=== PATIENT | female | born 1945 | race Caucasian/White ===

== ENCOUNTER 2016-09-30 03:55 | Emergency (ER) | payer MEDICARE, OTHER ==
[2016-09-30] MEDS ORDERED: Ondansetron 4 MG/2 ML SDV IVPUSH ONE ×2 (04:24→08:35)
[2016-09-30] MEDS ORDERED: Sodium Chloride 0.9% 1,000 ML IV SCH (04:30)
--- NOTE | 2016-09-30 05:09 | EDM.PDOC ---
ED HPI GENERAL MEDICAL PROBLEM - General Chief Complaint: Gastrointestinal Problem Stated Complaint: [facility] Time Seen by Provider: 09/30/16 04:04 Source of Information: Reports: Patient, RN notes reviewed, Significant Other ( Boyfriend) History Limitations: Reports: Uncooperative (The patient answers "I don't know" to most questions of about her history, with no apparent attempt to provide information) - History of Present Illness INITIAL COMMENTS - FREE TEXT/NARRATIVE: The patient states that she ate cereal around midnight, then woke up, perhaps around 01:00, diaphoretic with epigastric pain. She drank some Maalox, and went back to bed. She woke again, perhaps around 02:30, again with diaphoresis and epigastric pain. She vomited, which relieved her epigastric pain. She denies chest pain, dyspnea, or a sense of impending doom. The patient is concerned, because she suffered a AL in December 2015, and is concerned that this may be another heart attack. When asked how she presented at that time, she states "I don't know". Medical records acquired from [facility] indicate that the patient had a headache and neck pain for 3-4 days prior to arrival to our ED on 2015. She did not have any chest pain or dyspnea. She reported that her legs have been "wobbly". She was found to be in complete heart block, and her troponin was elevated. She was taken emergently to the cardiac catheter lab, where she was found to have a 100% RCA lesion, which was stented the following day, 01/03/2016. She was also found to have LAD disease, which was not stented. A pacemaker was placed on 01/04/2016 due to the complete heart block. The patient is a committed smoker, and resides with a smoker. - Related Data Allergies Allergy/AdvReac Type Severity Reaction Status Date / Time Sulfa (Sulfonamide Allergy Anaphylactic Verified 09/30/16 04:00 Antibiotics) Shock Home Meds: Home Meds Carvedilol [Carvedilol] 09/30/16 [History] Clopidogrel [Plavix] 09/30/16 [History] Lisinopril [Prinivil] 09/30/16 [History] atorvaSTATin [Lipitor] 09/30/16 [History] Past Medical History Cardiovascular History: Reports: Aneurysm (AAA 2000), CAD, High cholesterol, Hypertension, AL Genitourinary History: Reports: Urinary incontinence Endocrine/Metabolic History: Reports: Obesity/BMI 30+ Oncologic (Cancer) History: Reports: Other (see below) (Parathyroid gland) - Past Surgical History Cardiovascular Surgical History: Reports: AAA repair (2000), Coronary artery stent (x 1 to the RCA 01/03/2016), Pacer (dual-chamber, 01/04/2016) Female Surgical History: Reports: section (x 1), Hysterectomy, Salpingo-oophorectomy Endocrine Surgical History: Reports: Parathyroidectomy (partial) Social & Family History - Family History Family Medical History: Noncontributory - Tobacco Use Smoking Status *Q: Current Every Day Smoker Years of Tobacco use: 56 Packs/Tins Daily: 0.5 Packs/Tins Daily Comment: down from 1 ppd Second Hand Smoke Exposure: Yes - Alcohol Use Alcohol Use History: Yes Alcohol Use Frequency: Rarely - Recreational Drug Use Recreational Drug Use: No - Living Situation & Occupation Living situation: Reports: , with significant other (Boyfriend) ED ROS GENERAL - Review of Systems Review Of Systems: See Below Constitutional: Reports: other ("tired" recently) HEENT: Reports: No symptoms Respiratory: Reports: No Symptoms Cardiovascular: Reports: No symptoms Endocrine: Reports: no symptoms GI/Abdominal: Reports: No symptoms : Reports: no symptoms Musculoskeletal: Reports: no symptoms Skin: Reports: no symptoms Neurological: Reports: No Symptoms Psychiatric: Reports: No symptoms Hematologic/Lymphatic: Reports: no symptoms Immunologic: Reports: no symptoms ED EXAM, GENERAL - Physical Exam Exam: See Below Exam Limited By: No limitations General Appearance: alert, WD/WN, no apparent distress Eye Exam: bilateral eye: EOMI, normal inspection Ears: normal external exam, hearing grossly normal Ear Exam: bilateral ear: auricle normal Nose: normal inspection, no blood Throat/Mouth: Normal inspection, Normal lips, Normal voice, No airway compromise Head: atraumatic, normocephalic Neck: normal inspection, full range of motion Respiratory/Chest: no respiratory distress, lungs clear, normal breath sounds, no accessory muscle use Cardiovascular: normal peripheral pulses, regular rate, rhythm, no gallop, no JVD, no murmur, no rub Peripheral Pulses: 4+: radial (L), radial (R) GI/Abdominal: normal bowel sounds, soft, no organomegaly, no distention, no abnormal bruit, no mass, tender (Mild epigastric only. Nontender elsewhere.), other (Obese) (Female) Exam: Deferred Rectal (Female) Exam: Deferred Back Exam: normal inspection, full range of motion, NT Extremities: normal inspection, normal range of motion, no pedal edema, normal capillary refill Neurological: alert, oriented, normal cognition, no motor/sensory deficits Psychiatric: normal affect Skin Exam: Warm, Dry, Intact, Normal color, No rash Lymphatic: no adenopathy EKG INTERPRETATION EKG Date: 09/30/16 Time: 04:00 Rhythm: NSR Rate (beats/min): 76 [place]: normal P-wave: present QRS: normal ST-T: normal QT: normal Comparison: change from previous EKG (01/02/2016 - was in 3rd degree heart block) Course - Vital Signs Last Recorded V/S: Last Vital Signs Temp 36.9 C 09/30/16 04:00 Pulse 75 09/30/16 04:00 Resp 18 09/30/16 04:00 BP 133/63 09/30/16 04:00 Pulse Ox 89 L 09/30/16 05:23 - Orders/Labs/Meds Orders: Active Orders 24 hr Category Date Time Status EKG 12 Lead [EKG Documentation Completion] [RC] STAT Care 09/30/16 04:11 Active Ang Chest [CT] Stat Exams 09/30/16 05:14 Stop Req Ang Chest [CT] Stat Exams 09/30/16 05:14 Taken Chest 2V [CR] Stat Exams 09/30/16 04:20 Taken Sodium Chloride 0.9% [Normal Saline] 1,000 ml Med 09/30/16 04:30 Active IV ASDIRECTED Sodium Chloride 0.9% [Normal Saline] 100 ml Med 09/30/16 05:45 Active IV ASDIRECTED Sodium Chloride 0.9% [Saline Flush] Med 09/30/16 05:44 Active 10 ml FLUSH ONETIME PRN Medication Orders Sodium Chloride (Normal Saline) 1,000 mls @ 100 mls/hr IV ASDIRECTED CJ Last Admin: 09/30/16 04:53 Dose: 100 mls/hr Sodium Chloride (Normal Saline) 100 mls @ 80 mls/hr IV ASDIRECTED CJ Last Admin: 09/30/16 06:26 Dose: 80 mls/hr Sodium Chloride (Saline Flush) 10 ml FLUSH ONETIME PRN PRN Reason: IV FLUSH Last Admin: 09/30/16 06:26 Dose: 10 ml Labs: Laboratory Tests 09/30/16 09/30/16 09/30/16 Range/Units 04:32 04:32 04:32 WBC 10.74 H (3.98-10.04) K/mm3 RBC 4.87 (3.98-5.22) M/mm3 Hgb 15.4 (11.2-15.7) gm/L Hct 46.3 H (34.1-44.9) % MCV 95.1 H (79.4-94.8) fl MCH 31.6 (25.6-32.2) pg MCHC 33.3 (32.2-35.5) g/dl RDW Std Deviation 44.2 (36.4-46.3) fL Plt Count 150 L (182-369) K/mm3 MPV 10.1 (9.4-12.3) fl Neutrophils % (Manual) 71 H (40-60) % Band Neutrophils % 2 (0-10) % Lymphocytes % (Manual) 20 (20-40) % Atypical Lymphs % 0 % Monocytes % (Manual) 4 (2-10) % Eosinophils % (Manual) 2 (0.7-5.8) % Basophils % (Manual) 1 (0.1-1.2) Platelet Estimate Adequate RBC Morph Comment Normal PT 10.7 (8.0-13.0) SECONDS INR 0.98 APTT 23 (22-36) SECONDS D-Dimer, Quantitative 2.45 H (0.19-0.59) mg/L Sodium 145 (136-145) mEq/L Potassium 3.8 (3.5-5.1) mEq/L Chloride 107 (98-107) mEq/L Carbon Dioxide 26 (21-32) mEq/L Anion Gap 15.8 H (5-15) BUN 14 (7-18) mg/dL Creatinine 0.8 (0.55-1.02) mg/dL Est Cr Clr Drug Dosing TNP Estimated GFR (MDRD) > 60 (>60) mL/min BUN/Creatinine Ratio 17.5 (14-18) Glucose 125 H (80-115) mg/dL Calcium 9.2 (8.5-10.1) mg/dL Total Bilirubin 0.7 (0.2-1.0) mg/dL AST 18 (15-37) U/L ALT 22 (14-59) U/L Alkaline Phosphatase 92 (46-116) U/L Troponin I < 0.017 (0.00-0.056) ng/mL B-Natriuretic Peptide (0-100) pg/mL Total Protein 6.8 (6.4-8.2) g/dl Albumin 3.6 (3.4-5.0) g/dl Globulin 3.2 gm/dL Albumin/Globulin Ratio 1.1 (1-2) Lipase 109 (73-393) U/L 09/30/16 Range/Units 04:32 WBC (3.98-10.04) K/mm3 RBC (3.98-5.22) M/mm3 Hgb (11.2-15.7) gm/L Hct (34.1-44.9) % MCV (79.4-94.8) fl MCH (25.6-32.2) pg MCHC (32.2-35.5) g/dl RDW Std Deviation (36.4-46.3) fL Plt Count (182-369) K/mm3 MPV (9.4-12.3) fl Neutrophils % (Manual) (40-60) % Band Neutrophils % (0-10) % Lymphocytes % (Manual) (20-40) % Atypical Lymphs % % Monocytes % (Manual) (2-10) % Eosinophils % (Manual) (0.7-5.8) % Basophils % (Manual) (0.1-1.2) Platelet Estimate RBC Morph Comment PT (8.0-13.0) SECONDS INR APTT (22-36) SECONDS D-Dimer, Quantitative (0.19-0.59) mg/L Sodium (136-145) mEq/L Potassium (3.5-5.1) mEq/L Chloride (98-107) mEq/L Carbon Dioxide (21-32) mEq/L Anion Gap (5-15) BUN (7-18) mg/dL Creatinine (0.55-1.02) mg/dL Est Cr Clr Drug Dosing Estimated GFR (MDRD) (>60) mL/min BUN/Creatinine Ratio (14-18) Glucose (80-115) mg/dL Calcium (8.5-10.1) mg/dL Total Bilirubin (0.2-1.0) mg/dL AST (15-37) U/L ALT (14-59) U/L Alkaline Phosphatase (46-116) U/L Troponin I (0.00-0.056) ng/mL B-Natriuretic Peptide 77 (0-100) pg/mL Total Protein (6.4-8.2) g/dl Albumin (3.4-5.0) g/dl Globulin gm/dL Albumin/Globulin Ratio (1-2) Lipase (73-393) U/L Meds: Medications Generic Name Dose Route Start Last Admin Trade Name Freq PRN Reason Stop Dose Admin Sodium Chloride 1,000 mls @ 100 mls/hr 09/30/16 04:30 09/30/16 04:53 Normal Saline IV 100 mls/hr ASDIRECTED CJ Administration Sodium Chloride 100 mls @ 80 mls/hr 09/30/16 05:45 09/30/16 06:26 Normal Saline IV 80 mls/hr ASDIRECTED CJ Administration Sodium Chloride 10 ml 09/30/16 05:44 09/30/16 06:26 Saline Flush FLUSH 10 ml ONETIME PRN Administration IV FLUSH Discontinued Medications Generic Name Dose Route Start Last Admin Trade Name Freq PRN Reason Stop Dose Admin Iopamidol 100 ml 09/30/16 05:44 09/30/16 06:26 Isovue-370 (76%) IVPUSH 09/30/16 05:45 100 ml ONETIME ONE Administration Ondansetron HCl 4 mg 09/30/16 04:24 09/30/16 04:53 Zofran IVPUSH 09/30/16 04:25 4 mg ONETIME ONE Administration - Radiology Interpretation Free Text/Narrative:: Two-view chest radiograph reviewed. Cardiac silhouette is within normal limits , however, there appears to be an intrathoracic aneurysm of the descending aorta , seen on the lateral view. No pulmonary vascular congestion. No pleural effusions. No focal infiltrate. No pneumothorax. A 2-chamber left-sided pacemaker is noted. Comparison is made with an AP portable chest radiograph dated 01/02/2016 - no prior lateral radiograph to compare. Formal read per the Radiologist pending. CT angiogram of the chest is read by [facility] as: 1. Unruptured a descending aortic aneurysm 4 x 3.8 cm. 2. No evidence of pulmonary embolus to the segmental level. 3. Large atherosclerotic plaques in the descending thoracic aorta. 4. No aortic dissection. 5. 8.6 mm pulmonary nodule in the posterior aspect of the right upper lobe. 5.3 mm pulmonary nodule in the left apex. A 0.5 mm pulmonary nodule in the lingula. 6. Opacities in the lower lobes may represent atelectasis or pneumonia. - Re-Assessments/Exams Free Text/Narrative Re-Assessment/Exam: 09/30/16 05:14 The patient's D-dimer has returned substantially elevated at 2.45, and there appears to be a descending thoracic aortic aneurysm on the lateral chest radiograph, age indeterminate, as there are no prior lateral chest radiographs to compare. The patient reports repair of an aortic aneurysm about 10 years ago , but indicates that it was in her abdomen, not her thorax. I have ordered a CT angiogram of the chest to rule out PE and evaluate the aneurism. 09/30/16 07:[address] Benitez, [facility], at 07:02. She did not mention the descending aortic dilatation in her report, because it is under 5 cm in diameter and is therefore not large enough to qualify as an aneurism. 09/30/16 07:27 Test results discussed with the patient. Today's workup demonstrates an ascending aortic aneurism and a descending aortic dilatation, but is otherwise unremarkable. These will need to be followed. The importance of the patient quitting smoking was emphasized. The cause of the patient's epigastric pain, nausea, and emesis is unclear. I recommended to the patient that if her symptoms recur, that she return to the ED for re-evaluation. Departure - Departure Time of Disposition: 07:29 Disposition: Home, Self-Care 01 Condition: good Clinical Impression: Epigastric abdominal pain of unknown etiology, Nausea & vomiting, Ascending aortic aneurysm, Dilation of descending aorta Referrals: Anna Marie Marion NP [Ordering Only Provider] - Forms: ED Department Discharge Additional Instructions: You were seen in the emergency room for upper abdominal pain, nausea, and vomiting this morning. Workup in the ER included blood work, an ECG, a chest x-ray, and a CT angiogram of your chest. Your workup shows that you have and ascending aortic aneurysm, and a descending aortic dilatation. The remainder of your workup was unremarkable. These aortic abnormalities will need to be followed, especially given your history. Followup with your PCP, Anna Marie Marion, in this regard. The cause of your upper abdominal pain and vomiting is unclear - it is possible that you ate something that disagreed with you. We STRONGLY recommend that you quit smoking. If your symptoms recur, or for other concerns, please do not hesitate to return to the ER. - My Orders Last 24 Hours: My Active Orders 09/30/16 04:11 EKG 12 Lead [EKG Documentation Completion] [RC] STAT 09/30/16 04:20 Chest 2V [CR] Stat 09/30/16 04:30 Sodium Chloride 0.9% [Normal Saline] 1,000 ml IV ASDIRECTED 09/30/16 05:14 Ang Chest [CT] Stat Ang Chest [CT] Stat 09/30/16 05:44 Sodium Chloride 0.9% [Saline Flush] 10 ml FLUSH ONETIME PRN 09/30/16 05:45 Sodium Chloride 0.9% [Normal Saline] 100 ml IV ASDIRECTED - Assessment/Plan Last 24 Hours: My Active Orders 09/30/16 04:11 EKG 12 Lead [EKG Documentation Completion] [RC] STAT 09/30/16 04:20 Chest 2V [CR] Stat 09/30/16 04:30 Sodium Chloride 0.9% [Normal Saline] 1,000 ml IV ASDIRECTED 09/30/16 05:14 Ang Chest [CT] Stat Ang Chest [CT] Stat 09/30/16 05:44 Sodium Chloride 0.9% [Saline Flush] 10 ml FLUSH ONETIME PRN 09/30/16 05:45 Sodium Chloride 0.9% [Normal Saline] 100 ml IV ASDIRECTED
[2016-09-30] MEDS ORDERED: Sodium Chloride 0.9% 10 ML Syringe FLUSH PRN (05:44)
[2016-09-30] MEDS ORDERED: Iopamidol 755 Mg/ML 100 ML Bottle IVPUSH ONE (05:44)
[2016-09-30] MEDS ORDERED: Sodium Chloride 0.9% 100 ML IV SCH (05:45)
[2016-09-30] MEDS ORDERED: Alum Hydrox/Mag Hydrox/Simeth 30 ML, Lidocaine 2% 15 ML PO STA ×2 (08:18)
[2016-09-30] MEDS ORDERED: Ondansetron 4 MG/2 ML SDV ONE (08:31)
[2016-09-30 08:33] VITALS: BP 158/99
[2016-09-30] MEDS ORDERED: Famotidine 20 MG/2 ML SDV IVPUSH ONE (08:39)
[2016-09-30] MEDS ORDERED: HYDROmorphone 1 MG/ML Syringe IVPUSH ONE (08:40)
--- NOTE | 2016-09-30 16:18 | CR ---
Chest: Two views of the chest were obtained. Comparison: Previous chest x-ray of 01/02/16 is available. Heart size slightly enlarged with left ventricular configuration. Tortuous thoracic aorta is seen. Pacemaker is noted. Scattered nodules are seen within the chest. Right upper lobe nodule is equivocally present on prior exam but findings have increased in prominence. Surgical clips are seen at the base of the neck. Bony structure show degenerative changes within the spine with mild scoliosis. Impression: 1. Increasing nodules within both sides of the chest. Difficult to exclude metastatic disease at this time. 2. Other incidental findings. Diagnostic code #9
--- NOTE | 2016-09-30 16:18 | CT ---
CT chest Technique: Multiple axial sections were obtained through the chest. Intravenous contrast was utilized. Study has been performed as a pulmonary angiogram protocol. Comparison: Previous chest x-rays are available, no previous chest CTs available. Findings: Pulmonary arteries are well-opacified. No filling defects are seen to indicate pulmonary embolism. Coronary artery calcification is noted. Diffuse atherosclerotic plaque is seen within the thoracic aorta and upper abdominal aorta. Ascending aorta is 4.0 cm which is slightly aneurysmal. Descending aorta measures about 3.3 cm at the same level. Mediastinum and hilar regions show no adenopathy or mass. Several lymph nodes seen within the mediastinum which at this time are likely incidental. Heart size is mildly enlarged. Several low density lesions are seen within the liver which most likely represent cysts. Nodule identified within the right upper lung measuring 9 mm. Small nodule noted within the left upper lung measuring 6 mm. Third nodule identified within the left base measuring 1 cm. These do not appear calcified. Increased density identified within both lung bases most likely due to atelectasis. Impression: 1. Mild ascending aortic aneurysm. Aorta contains diffuse plaque. 2. No findings of pulmonary embolism. 3. Three nodules within the chest. These contain no calcifications and are nonspecific. Findings could represent noncalcified granulomas or metastatic disease. Please correlate if patient has any known malignancy. If no clinical history helps to determine etiology of the nodules, follow-up noncontrast chest CT could be considered in 6 months to confirm stability. 4. Small abnormalities within the liver most likely representing cysts.. Diagnostic code #9 Agree with preliminary report issued by [facility] (preliminary [facility] report dictated on 09/30/16, 7:33 AM Central Time)
== END 2016-09-30 09:50 | disposition home or self-care (01) ==
LOC: JD.ED 03:55
DX: R10.13 Epigastric pain (principal); K56.60 Unspecified intestinal obstruction; R11.2 Nausea with vomiting, unspecified; I71.4 Abdominal aortic aneurysm, without rupture; I77.819 Aortic ectasia, unspecified site; Z88.2 Allergy status to sulfonamides; Z79.899 Other long term (current) drug therapy; I25.10 Atherosclerotic heart disease of native coronary artery without angina pectoris; I10 Essential (primary) hypertension; Z95.5 Presence of coronary angioplasty implant and graft; F17.200 Nicotine dependence, unspecified, uncomplicated; E78.00 Pure hypercholesterolemia, unspecified; I25.2 Old myocardial infarction; E66.9 Obesity, unspecified; Z68.30 Body mass index [BMI] 30.0-30.9, adult; R32 Unspecified urinary incontinence; Z95.0 Presence of cardiac pacemaker; R06.02 Shortness of breath
CPT/HCPCS: 36415; 71020; 71275; 74177; 80053; 81001; 82553; 82977; 83690; 83880; 84443; 84484; 85025; 85379; 85610; 85730; 86140; 93005; 96361; 96374; 96375; 96376; 99285; A9270; J1170; J2405; J7030; J7040; J7050; Q9963; Q9967; 99284

== ENCOUNTER 2016-09-30 18:15 | Emergency (ER) | payer MEDICARE, SELFPAY ==
[2016-09-30] MEDS ORDERED: Sodium Chloride 0.9% 10 ML Syringe FLUSH PRN ×2 (18:28→19:11)
[2016-09-30] MEDS ORDERED: Ondansetron 4 MG/2 ML SDV IVPUSH ONE (18:28)
[2016-09-30] MEDS ORDERED: HYDROmorphone 0.5 MG/0.5 ML Syringe IVPUSH ONE (18:31)
--- NOTE | 2016-09-30 18:33 | EDM.PDOC ---
ED HPI GI/ABDOMINAL - General Chief Complaint: Abdominal Pain Stated Complaint: [facility] Time Seen by Provider: 09/30/16 18:22 Source of Information: Reports: Patient, Old records (ER visit from earlier today) History Limitations: Reports: No limitations - History of Present Illness INITIAL COMMENTS - FREE TEXT/NARRATIVE: Patient presents via the [facility] for evaluation and treatment of LUQ abdominal pain, nausea, vomiting and bloating. Patient was in out ER this morning for the same problem. She had a complete cardiac work-up which was negative. She was sent home. She state throughout the day the nausea, vomiting and abdominal pain has worsened. Current symptosm include LUQ abdominal pain, nausea, vomiting, chills, bloating and diaphoresis. Reports a fever but has not taken her temp. Denies any diarrhea, headaches, urinary symptoms. Previous surgeries include a AAA repair at the [facility] in 2000 and a total hysterectomy done in [place]. Patient is a poor historian and is not very forthcoming with information. - Related Data Allergies/ADRs: Allergies Allergy/AdvReac Type Severity Reaction Status Date / Time Sulfa (Sulfonamide Allergy Anaphylactic Verified 09/30/16 18:28 Antibiotics) Shock Home Meds: Home Meds Carvedilol [Carvedilol] 09/30/16 [History] Clopidogrel [Plavix] 09/30/16 [History] Lisinopril [Prinivil] 09/30/16 [History] atorvaSTATin [Lipitor] 09/30/16 [History] Past Medical History Cardiovascular History: Reports: Aneurysm, CAD, High cholesterol, Hypertension, RI Genitourinary History: Reports: Urinary incontinence Endocrine/Metabolic History: Reports: Obesity/BMI 30+ Oncologic (Cancer) History: Reports: Uterine - Past Surgical History Cardiovascular Surgical History: Reports: AAA repair, Coronary artery stent, Pacer Female Surgical History: Reports: section, Hysterectomy, Salpingo- oophorectomy Endocrine Surgical History: Reports: Parathyroidectomy Social & Family History - Family History Family Medical History: Noncontributory - Tobacco Use Smoking Status *Q: Current Every Day Smoker Years of Tobacco use: 56 Packs/Tins Daily: 0.5 Second Hand Smoke Exposure: Yes - Recreational Drug Use Recreational Drug Use: No - Living Situation & Occupation Living situation: Reports: , with significant other (Boyfriend) ED ROS GENERAL - Review of Systems Review Of Systems: See Below Constitutional: Reports: malaise, decreased appetite GI/Abdominal: Reports: Abdominal pain, Distension, Nausea, Vomiting. Denies: Diarrhea : Reports: no symptoms Neurological: Denies: Headache ED EXAM, GI/ABD - Physical Exam Exam: See Below Exam Limited By: No limitations General Appearance: alert, WD/WN, no apparent distress, obese Respiratory/Chest: no respiratory distress, lungs clear, normal breath sounds Cardiovascular: normal peripheral pulses, regular rate, rhythm, no murmur GI/Abdominal: absent bowel sounds, tenderness (diffuse: greatest in the LUQ), distention, guarding Neurological: alert, oriented, normal cognition Psychiatric: normal affect, normal mood Skin Exam: Warm, Dry, Normal color EKG INTERPRETATION EKG Date: 09/30/16 Time: 18:35 Rhythm: NSR Rate (beats/min): 85 [place]: normal P-wave: present QRS: normal ST-T: normal QT: normal EKG Interpretation Comments: Sinus rhythm at [address] depression inV4 and V5. Q waves in II, II and AVF - old inferior wall RI. Reviewed by myself and Dr. Rojas Course - Vital Signs Last Recorded V/S: Last Vital Signs Temp 36.3 C 09/30/16 18:23 Pulse 90 09/30/16 20:37 Resp 16 09/30/16 20:37 BP 125/52 L 09/30/16 20:37 Pulse Ox 94 L 09/30/16 20:37 - Orders/Labs/Meds Orders: Active Orders 24 hr Category Date Time Status Cardiac Monitoring [RC] . DIRECTED Care 09/30/16 18:31 Active EKG Documentation Completion [RC] STAT Care 09/30/16 18:28 Active Peripheral IV Care [RC] . DIRECTED Care 09/30/16 18:29 Active Nothing Per Oral Diet [DIET] Diet 09/30/16 Breakfast Active Abdomen Pelvis w Cont [CT] Stat Exams 09/30/16 18:28 Taken UA W/MICROSCOPIC [URIN] Stat Lab 09/30/16 18:30 Uncollected Sodium Chloride 0.9% [Normal Saline] 1,000 ml Med 09/30/16 20:47 Active IV ONETIME Sodium Chloride 0.9% [Saline Flush] Med 09/30/16 18:28 Active 10 ml FLUSH ASDIRECTED PRN Sodium Chloride 0.9% [Saline Flush] Med 09/30/16 19:11 Active 10 ml FLUSH ONETIME PRN Nasogastric Orogastric Tube Insertion [OM.PC] Routine Oth 09/30/16 20:47 Ordered Peripheral IV Insertion Adult [OM.PC] Routine Oth 09/30/16 18:27 Ordered Medication Orders Sodium Chloride (Normal Saline) 1,000 mls @ 100 mls/hr IV ONETIME ONE Stop: 10/01/16 06:46 Last Admin: 09/30/16 21:06 Dose: 100 mls/hr Sodium Chloride (Saline Flush) 10 ml FLUSH ASDIRECTED PRN PRN Reason: Keep Vein Open Last Admin: 09/30/16 18:36 Dose: 10 ml Sodium Chloride (Saline Flush) 10 ml FLUSH ONETIME PRN PRN Reason: IV FLUSH Last Admin: 09/30/16 20:14 Dose: 10 ml Labs: Laboratory Tests 09/30/16 09/30/16 09/30/16 Range/Units 18:30 18:30 18:30 WBC 12.46 H (3.98-10.04) K/mm3 RBC 5.23 H (3.98-5.22) M/mm3 Hgb 16.5 H (11.2-15.7) gm/L Hct 50.4 H (34.1-44.9) % MCV 96.4 H (79.4-94.8) fl MCH 31.5 (25.6-32.2) pg MCHC 32.7 (32.2-35.5) g/dl RDW Std Deviation 46.4 H (36.4-46.3) fL Plt Count 164 L (182-369) K/mm3 MPV 10.0 (9.4-12.3) fl Neut % (Auto) 86.4 H (34.0-71.1) % Lymph % (Auto) 5.6 L (19.3-51.7) % [place] % (Auto) 6.7 (4.7-12.5) % Eos % (Auto) 0.7 (0.7-5.8) Baso % (Auto) 0.4 (0.1-1.2) % Neut # (Auto) 10.77 H (1.56-6.13) K/mm3 Lymph # (Auto) 0.70 L (1.18-3.74) K/mm3 [place] # (Auto) 0.83 H (0.24-0.36) K/mm3 Eos # (Auto) 0.09 (0.04-0.36) K/mm3 Baso # (Auto) 0.05 (0.01-0.08) K/mm3 Manual Slide Review Abnormal smear Sodium 142 (136-145) mEq/L Potassium 4.4 (3.5-5.1) mEq/L Chloride 105 (98-107) mEq/L Carbon Dioxide 29 (21-32) mEq/L Anion Gap 12.4 (5-15) BUN 17 (7-18) mg/dL Creatinine 1.1 H (0.55-1.02) mg/dL Est Cr Clr Drug Dosing 39.91 mL/min Estimated GFR (MDRD) 49 (>60) mL/min BUN/Creatinine Ratio 15.5 (14-18) Glucose 161 H (80-115) mg/dL Calcium 9.2 (8.5-10.1) mg/dL Total Bilirubin 0.6 (0.2-1.0) mg/dL GGT 23 (5-55) U/L AST 21 (15-37) U/L ALT 23 (14-59) U/L Alkaline Phosphatase 103 (46-116) U/L CK-MB (CK-2) 2.7 (0-3.6) ng/ml Troponin I < 0.017 (0.00-0.056) ng/mL C-Reactive Protein 0.8 (<1.0) mg/dL Total Protein 7.5 (6.4-8.2) g/dl Albumin 3.9 (3.4-5.0) g/dl Globulin 3.6 gm/dL Albumin/Globulin Ratio 1.1 (1-2) Lipase 98 (73-393) U/L TSH 3rd Generation 0.303 L (0.358-3.74) uIU/mL Meds: Medications Generic Name Dose Route Start Last Admin Trade Name Freq PRN Reason Stop Dose Admin Sodium Chloride 1,000 mls @ 100 mls/hr 09/30/16 20:47 09/30/16 21:06 Normal Saline IV 10/01/16 06:46 100 mls/hr ONETIME ONE Administration Sodium Chloride 10 ml 09/30/16 18:28 09/30/16 18:36 Saline Flush FLUSH 10 ml ASDIRECTED PRN Administration Keep Vein Open Sodium Chloride 10 ml 09/30/16 19:11 09/30/16 20:14 Saline Flush FLUSH 10 ml ONETIME PRN Administration IV FLUSH Discontinued Medications Generic Name Dose Route Start Last Admin Trade Name Maicol PRN Reason Stop Dose Admin Diatrizoate Meglum/Diatrizoate Sod 120 ml 09/30/16 19:11 09/30/16 20:14 Gastrografin 37% PO 09/30/16 19:12 90 ml ONETIME ONE Administration Hydromorphone HCl 0.5 mg 09/30/16 18:31 09/30/16 18:36 Dilaudid IVPUSH 09/30/16 18:32 0.5 mg ONETIME ONE Administration Iopamidol 100 ml 09/30/16 19:11 09/30/16 20:14 Isovue-300 (61%) IVPUSH 09/30/16 19:12 80 ml ONETIME ONE Administration Lidocaine HCl Confirm 09/30/16 20:51 09/30/16 21:07 Xylocaine 2% Jelly Administered 09/30/16 20:52 Not Given Dose 10 ml .ROUTE .STK-MED ONE Lidocaine HCl 10 ml 09/30/16 21:05 09/30/16 21:06 Xylocaine 2% Jelly MUCMEM 09/30/16 21:06 10 ml ONETIME ONE Administration Ondansetron HCl 4 mg 09/30/16 18:28 09/30/16 18:36 Zofran IVPUSH 09/30/16 18:29 4 mg ONETIME ONE Administration - Radiology Interpretation Free Text/Narrative:: CT of the abdomen impression with IV and oral contrast impression per Vrad 1. Small bowel obstruction with mildly dilated proximal to mid small bowel and transition point in the left abdomen 2. Colonic diverticulosis without evidence of acute diverticulitis. 3. Diffuse marked atherosclerotic calcification. Occluded left common, external, internal iliac arteries. Reconstitution of the distal left external iliac artery via collaterals. 4. Incidental findings. CT Results Date: 09/30/16 - Re-Assessments/Exams Free Text/Narrative Re-Assessment/Exam: 09/30/16 21:32 Labs returned. WBC is 12.46, hgb is 16.5 and plts are 164 Sodium is 142, potassium is 4.4 and chloride is 105. Anion gap is 12.4 Trop is within normal limtis <0.017 CKMB is within normal limits at 2.2 CRP is 0.8 TSH is slightly low at 0.303 lipase is normal at 98 N-G tube placed. Spoke with Dr. Hillman, surgeon, regarding the patient. Concers about cardiovascular status. Spoke with Dr. Willis, hospitalist, regarding the patient. [place] a higher level of care was needed due to her poor cardiovascular status. Spoke with the patient. She elects to go to [facility]. 09/30/16 21:[address] Hernández, hospitalist, at [facility]. Accepts the patient in transfer. Will send by ground ambulance to [facility], Dr. Hernández accepting. Departure - Departure Time of Disposition: 21:56 Disposition: DC/Tfer to Acute Hospital 02 Condition: serious Clinical Impression: Small bowel obstruction Referrals: PCP,None [Primary Care Provider] - Anna Marie Marion NP [Ordering Only Provider] - Forms: ED Department Discharge Additional Instructions: Patient to go by ground ambulance to [facility]. Dr. Hernández accepting. - My Orders Last 24 Hours: My Active Orders 09/30/16 18:27 Peripheral IV Insertion Adult [OM.PC] Routine 09/30/16 18:28 EKG Documentation Completion [RC] STAT Abdomen Pelvis w Cont [CT] Stat Sodium Chloride 0.9% [Saline Flush] 10 ml FLUSH ASDIRECTED PRN 09/30/16 18:29 Peripheral IV Care [RC] . DIRECTED 09/30/16 18:30 UA W/MICROSCOPIC [URIN] Stat 09/30/16 18:31 Cardiac Monitoring [RC] . DIRECTED 09/30/16 19:11 Sodium Chloride 0.9% [Saline Flush] 10 ml FLUSH ONETIME PRN 09/30/16 20:47 Sodium Chloride 0.9% [Normal Saline] 1,000 ml IV ONETIME Nasogastric Orogastric Tube Insertion [OM.PC] Routine 09/30/16 Breakfast Nothing Per Oral Diet [DIET] - Assessment/Plan Last 24 Hours: My Active Orders 09/30/16 18:27 Peripheral IV Insertion Adult [OM.PC] Routine 09/30/16 18:28 EKG Documentation Completion [RC] STAT Abdomen Pelvis w Cont [CT] Stat Sodium Chloride 0.9% [Saline Flush] 10 ml FLUSH ASDIRECTED PRN 09/30/16 18:29 Peripheral IV Care [RC] . DIRECTED 09/30/16 18:30 UA W/MICROSCOPIC [URIN] Stat 09/30/16 18:31 Cardiac Monitoring [RC] . DIRECTED 09/30/16 19:11 Sodium Chloride 0.9% [Saline Flush] 10 ml FLUSH ONETIME PRN 09/30/16 20:47 Sodium Chloride 0.9% [Normal Saline] 1,000 ml IV ONETIME Nasogastric Orogastric Tube Insertion [OM.PC] Routine 09/30/16 Breakfast Nothing Per Oral Diet [DIET]
[2016-09-30] MEDS ORDERED: Iopamidol 612 MG/ML 100 ML Bottle IVPUSH ONE (19:11)
[2016-09-30] MEDS ORDERED: Diatrizoate Meglumine/Diatrizoate Sodium 37% 120 ML Bottle PO ONE (19:11)
[2016-09-30 20:39] VITALS: BP 125/52
[2016-09-30] MEDS ORDERED: Sodium Chloride 0.9% 1,000 ML IV ONE (20:47)
[2016-09-30] MEDS ORDERED: Lidocaine 2% Jelly 10 ML Urojet ONE (20:51)
[2016-09-30] MEDS ORDERED: Lidocaine 2% Jelly 10 ML Urojet MUCMEM ONE (21:05)
--- NOTE | 2016-10-01 08:35 | CT ---
CT abdomen and pelvis Technique: Multiple axial sections were obtained from above the dome of the diaphragm inferiorly through the pubic symphysis. Intravenous contrast was utilized. Oral contrast was utilized which mostly remains within the stomach. Comparison: No previous CT exam is available of the abdomen or pelvis. Findings: Visualized lower lung bases show atelectasis and probable scarring/fibrosis. Small low-density abnormality identified within the right lobe of the liver measuring 7 mm which is nonspecific regarding Hounsfield unit measurements but most likely representing a cyst. Second lesion is seen more inferiorly within the anterior right liver measuring about 1.7 cm which has Hounsfield unit measurements of a cyst. Three other low density lesions are seen inferiorly within the liver which are too small to characterize by Hounsfield unit measurements but most likely represent cysts. Spleen appears within normal limits. Left adrenal gland shows a small nodule which is likely incidental. Pancreas appears within normal limits. Increased density noted within the gallbladder most likely representing a combination of gallstones and sludge. Kidneys show symmetric contrast enhancement. No hydronephrosis or mass is seen within either kidney. Aorta shows a minimal aneurysm measuring about 2.5 cm in AP dimension. Aneurysm contains intramural clot. There is occlusion being seen of the left common iliac artery most likely due to atherosclerotic plaque. Dilated small bowel loops are identified compatible with small bowel obstruction. Distal ileal loops are decompressed. Transition point occurs within the left side of the abdomen. Etiology for the obstruction is not seen and findings most likely due to adhesion. Mild haziness around the area of obstruction is seen compatible with mesenteric congestion. Colonic diverticuli are seen most prominent within the sigmoid region. No inflammatory change is seen. There is a minimal amount of fluid being seen within the pelvis which is likely reactive from the small bowel obstruction. Bone window settings were reviewed which show degenerative change within the lower lumbar apophyseal joints. Endplate osteophytes are seen most prominent within the thoracic spine. Impression: 1. Dilated small bowel loops showing mild mesenteric congestion. Etiology not seen and findings most likely caused by adhesion. Distal ileal loops are decompressed. 2. Other incidental findings as noted above. Diagnostic code #3 I agree with preliminary report issued by [employer] (preliminary report dictated on 09/30/16, 9:35 PM Central Time)
== END 2016-09-30 23:02 ==
LOC: JD.ED 18:15
DX: K56.60 Unspecified intestinal obstruction (principal); I25.10 Atherosclerotic heart disease of native coronary artery without angina pectoris; I10 Essential (primary) hypertension; Z95.5 Presence of coronary angioplasty implant and graft; E78.00 Pure hypercholesterolemia, unspecified; I25.2 Old myocardial infarction; R32 Unspecified urinary incontinence; E66.9 Obesity, unspecified; Z68.30 Body mass index [BMI] 30.0-30.9, adult; F17.200 Nicotine dependence, unspecified, uncomplicated; Z79.899 Other long term (current) drug therapy; Z88.2 Allergy status to sulfonamides
CPT/HCPCS: 36415; 74177; 80053; 81001; 82553; 82977; 83690; 84443; 84484; 85025; 86140; 93005; J1170; J2405; J7040; J7050; Q9963; Q9967; 96361; 96374; 96375; 99284; 99285-25